=== PATIENT | male | born 1965 | race African-American/Black ===

== ENCOUNTER 2023-08-15 09:03 | Outpatient (CLI) | payer OTHER, SELFPAY | END 2023-08-15 09:04 | disposition home or self-care (01) | LOC: NFLDREF 08-19 10:33 | PROVIDERS: PCP Family Medicine; Referring Provider Family Medicine; Visit Provider Family Medicine | DX: Z00.00 Encounter for general adult medical examination without abnormal findings (principal); Z13.6 Encounter for screening for cardiovascular disorders; Z12.5 Encounter for screening for malignant neoplasm of prostate | CPT/HCPCS: 80053; 80061; 84153 ==